=== PATIENT | male | born 1965 | race African-American/Black ===

== ENCOUNTER → 2016-10-17 | Outpatient (CLI) | payer OTHER ==
[2016-10-17 14:44] LABS: BF CRYSTALS No Crystals seen
== END | disposition home or self-care (01) ==
LOC: SPEC 11:41 → LAB 11:41
PROVIDERS: Pathology Anatomic Pathology & Clinical Pathology
DX: M25.551 Pain in right hip (principal)

== ENCOUNTER → 2016-10-26 | Outpatient (CLI) | payer OTHER ==
[~2016-10-26] MED LIST: ASPIR-TRIN325 MG PO; FLAGYL500 MG PO; GABAPENTIN 100100 MG PO; GAS RELIEF 8080 MG PO; HYDROCODONE-AP1 EAC6 PO; IRON325 PO; LEVEMIR100 UNIT/1 SUBQ; LISINOPRIL10 MG PO; NORCO 5-325 TA1 EACH PO; NOVOLOG100 UNIT/1 SUBQ; ONDANSETRON HCL4 M2 PO; UNICOMPLEX M TA1 TA1 PO; VANCOMYCIN500 MG/VIA IV; VITAMIN D1000 UNI1 PO; ZINC SULFATE 2220 M1 PO
== END | disposition home or self-care (01) ==
LOC: OPONC 00:36
DX: Z45.2 Encounter for adjustment and management of vascular access device (principal)